=== PATIENT | female | born 1970 | race Caucasian/White ===

== ENCOUNTER → 2017-01-19 | Outpatient (CLI) | payer OTHER ==
--- NOTE | 2017-01-20 07:55 | MAMMOGRAPHY REPORT ---
BILATERAL DIGITAL SCREENING MAMMOGRAM TOMOSYNTHESIS WITH CAD: 01/19/2017 CLINICAL HISTORY: Routine screening. Patient has no complaints. TECHNIQUE: Breast tomosynthesis in addition to standard 2D mammography was performed. Current study was also evaluated with a Computer Aided Detection (CAD) system. COMPARISON: Comparison is made to exams dated: 11/15/2014 mammogram, 01/23/2013 mammogram, 01/13/2012 m ammogram, and 01/11/2012 mammogram - [facility]. BREAST COMPOSITION: There are scattered areas of fibroglandular density in both breasts. FINDINGS: The parenchymal pattern is unchanged. No developing mass, architectural distortion or clu ster of suspicious microcalcifications is seen in either breast. IMPRESSION: ACR BI-RADS CATEGORY 2: BENIGN There is no mammographic evidence of malignancy. A 1 year screening mammogram is recommended. The p atient will receive written notification of the results. Approximately 10% of breast cancers are not detected with mammography. A negative mammographic repor t should not delay biopsy if a clinically suggestive mass is present. Nicci Francis M.D. ay/:01/19/2017 17:15:09 Bottom Bleacher: Ketty PERDOMO)(Ann), [facility] letter sent: Normal 1/2 BI-RADS Code: ACR BI-RADS Category 2: Benign
== END | disposition home or self-care (01) ==
LOC: C.MAMM 16:02
PROVIDERS: ATTEND Family Medicine
DX: Z12.31 Encounter for screening mammogram for malignant neoplasm of breast (principal)

== ENCOUNTER 2022-07-07 19:09 | Inpatient (IN) ==
[2022-07-07 20:23] LABS: Basophils # (auto) 0.05 K/uL (0-0.2); Basophils % (auto) 0.6 %; Eosinophils # (auto) 0.34 K/uL (0-0.50); Eosinophils % (auto) 4.3 %; Hematocrit (blood only) 31.7 % (34.1-44.9); Hemoglobin 10.3 g/dl (12.0-16.0); Immature Granulocytes # (auto) 0.03 K/uL (0.00-0.02); Immature Granulocytes % (auto) 0.4 %; Lymphocytes # (auto) 2.89 K/uL (1.2-3.4); Lymphocytes % (auto) 36.2 %; Mean Corpuscular Hemoglobin 20.8 pg (25.0-34.0); Mean Corpuscular Hgb Conc 32.5 g/dL (32.0-36.0); Mean Corpuscular Volume 63.9 fL (80.0-100.0); Monocytes # (auto) 0.56 K/uL (0.24-0.82); Neutrophils # (auto) 4.11 K/uL (1.4-6.5); Neutrophils % (auto) 51.5 %; RDW Coefficient of Variation 16.6 % (11.5-14.5); RDW Standard Deviation 36.7 fL (36.4-46.3); Red Blood Count 4.96 M/uL (3.93-5.22); White Blood Count 7.98 K/ul (4.8-10.8)
[2022-07-07] MEDS ORDERED: LABETALOL HCL IV 5 MG/ML 20ML IV STA ×2 (20:23→20:24)
[2022-07-07 20:33] LABS: Appearance Urine Clear (Clear); Bilirubin Urine Negative (Negative); Blood Urine Negative (Negative); Color Urine Yellow; Glucose Urine UA Negative (Negative); Ketones Urine Negative (Negative); Leukocyte Esterase Urine Negative (Negative); Nitrite Urine Negative (Negative); Protein Urine Negative (Negative); Specific Gravity Urine 1.004 (1.000-1.030); Urobilinogen Urine Negative (Negative)
[2022-07-07 20:36] LABS: Partial Thromboplastin Ratio 1.1; Partial Thromboplastin Time 31.5 Seconds (21.0-31.0); Prothrombin Time 10.6 Seconds (9.0-12.0)
[2022-07-07 20:54] LABS: Albumin Globulin Ratio 1.5 (0.9-2); Albumin Level 4.4 gm/dl (3.4-5.0); BUN Creatinine Ratio 23.2 (10-20); Bilirubin,Total 0.5 mg/dl (0.2-1.0); Calcium 9.8 mg/dl (8.5-10.1); Creatinine Clr Calc Pharmacy 85.9 ml/min; Est GFR (African American) 95.4 ml/min; Est GFR (Non-African American) 82.3 ml/min; Globulin 2.9 gm/dl (2.5-4.0); Magnesium 1.8 mg/dl (1.7-2.4); Potassium 3.2 mmol/L (3.5-5.1); Total Protein 7.3 gm/dl (6.0-8.3)
[2022-07-07 20:56] LABS: Troponin I High Sensitivity 3.5 pg/ml (0-14)
--- NOTE | 2022-07-07 21:09 | Emergency Department Note ---
Impression & Plan Hypertensive urgency, Dizziness, Arm paresthesia, left ED Provider Note NAME: MELISSA REID AGE: 51 SEX: F : 1970 ARRIVES VIA: Walk-In INFORMANT: Patient ED PROVIDER(S): Shaji Ho DO CHIEF COMPLAINT: not feeling well HPI: Patient is a 51-year-old female who presents to the ER for not feeling well. She notes she has not been feeling good for the past 6 to 7 days. Today she notes she was feeling lightheaded and dizzy. She started to have left arm paresthesias in the upper arm. She checked her blood pressure which was significantly elevated. She did also feel her heart racing. She denies any chest pain or shortness of breath. No belly pain. No dysuria, urgency, or frequency. No other exacerbating or remitting factors. She has never had this before. ROS: See above HPI for pertinent positives & negatives. A total of 10 systems reviewed and were otherwise negative. PAST MEDICAL HISTORY:See Below PAST SURGICAL HISTORY:See Below FAMILY HISTORY:See Below SOCIAL HISTORY:See Below HOME MEDICATIONS:See Below ALLERGIES:See Below VITALS:See Below PHYSICAL EXAMINATION: GENERAL: Sitting up in bed, alert, well appearing, well nourished, no distress, non-toxic EYE EXAM: normal conjunctiva. OROPHARYNX: no exudate, no erythema, lips, buccal mucosa, and tongue normal and mucous membranes are moist NECK: supple, no nuchal rigidity, no adenopathy, non-tender LUNGS: Clear to auscultation. Normal chest wall mechanics HEART: no murmurs, S1 normal and S2 normal ABDOMEN: abdomen soft, non-tender, normo-active bowel sounds, no masses, no rebound or guarding. UPPER EXTREMITIES: upper extremities are grossly normal. LOWER EXTREMITIES: No pitting edema. NEURO EXAM: Normal sensorium, cranial nerves II-XII intact, normal speech, no weakness of arms, no weakness of legs. No drift. Finger to nose intact. Gross sensation intact. Rxdn-[id number]-tlcg intact. Rapid alternating movements of upper extremities intact MEDICAL DECISION MAKING: Patient is a 51-year-old female who presents ER for above-stated complaint. IV was established blood work was obtained. Labs show no significant leukocytosis. Mild anemia 10.3. BMP with mild hypokalemia 3.2. LFTs bilirubin was unremarkable. Troponin was negative. Lipase normal. UA was clean. COVID was negative. Chest x-ray unremarkable. CT angios of the head and neck were negative per stat read. Patient was given an IV dose of labetalol with systolic pressures greater than 200. This did trend down to the 160s. She was updated bedside. Discussed with the hospitalist admitted for further work-up. Triage Nursing notes reviewed. Limited review of prior medical records performed Vital Signs: reviewed and remarkable for tachy Differential diagnosis: Differential Diagnosis includes but is not limited to ischemic Stroke, hemorrhagic stroke, bells palsy, mass, neoplasm, migraine headache, seizure, subarachnoid hemorrhage, TIA, and transient global amnesia. ER treatment provided: See below Diagnostics interpreted by me: ECG: Sinus rhythm rate of 113 Normal axis Poor baseline Nonspecific ST wave changes in the inferior leads PVCs QTC 496 EKG #2 Sinus rhythm rate 93 Normal axis No PVCs QTC 494 Cardiac Monitoring: An order was placed for continuous cardiac monitoring. The monitor shows a rate of 98 with sinus rhythm. Laboratory studies: As stated above and show below. Imaging studies: CT angio of the head and neck were negative Consultation(s): D/w Dr Salamanca as stated above Procedures: none Critical Care: None Past Med/Surg History Social History Smoking Status: Never smoker Feels Safe at Home: Yes Allergies Allergies Allergy/AdvReac Type Severity Reaction Status Date / Time No Known Allergies Allergy Unverified 07/07/22 22:55 Home Meds Home Medications Medication Instructions Recorded Confirmed cholecalciferol (vitamin D3) 50 50 mcg PO DAILY 07/07/22 07/07/22 mcg (2,000 unit) tablet (Vitamin D3) duloxetine 30 mg capsule,delayed 60 mg PO Q OTHER DAY 07/07/22 07/07/22 release duloxetine 30 mg capsule,delayed 80 mg PO Q OTHER DAY 07/07/22 07/07/22 release lamotrigine 150 mg tablet 150 mg PO QAM 07/07/22 07/07/22 multivitamin 1 tab PO DAILY 07/07/22 07/07/22 pantoprazole 40 mg tablet,delayed 40 mg PO QAM 07/07/22 07/07/22 release rizatriptan 10 mg disintegrating 10 mg PO DIRECTED 07/07/22 07/07/22 tablet Results & Data (ED) Vital Signs Vital Signs - 24 hr 07/07/22 19:12 07/07/22 19:46 07/07/22 20:19 Temperature 36.4 C L Temperature Source Temporal Artery Scan Pulse Rate 123 H Pulse Rate [Right Finger] Pulse Rate from SpO2 Sensor Respiratory Rate 20 Respiratory Effort / Characteristics Non-Labored Spontaneous Respiratory Depth Normal Blood Pressure 200/104 H Blood Pressure [Right Arm] 192/102 H Blood Pressure Mean 136 Blood Pressure Mean [Right Arm] 132 Pulse Oximetry 100 100 Oxygen Delivery Method Room Air Room Air Oxygen Flow Rate 0 Sepsis Recent Fever Within 48 Hours No Sepsis New/Unexplained Change in Mental Status No Sepsis Action Taken by Nursing No Action Required 07/07/22 20:20 07/07/22 19:29 07/07/22 19:30 Temperature Temperature Source Pulse Rate 109 H 112 H Pulse Rate [Right Finger] Pulse Rate from SpO2 Sensor 111 H 111 H Respiratory Rate 16 15 Respiratory Effort / Characteristics Respiratory Depth Blood Pressure Blood Pressure [Right Arm] Blood Pressure Mean Blood Pressure Mean [Right Arm] Pulse Oximetry 99 100 100 Oxygen Delivery Method Room Air Oxygen Flow Rate Sepsis Recent Fever Within 48 Hours Sepsis New/Unexplained Change in Mental Status Sepsis Action Taken by Nursing 07/07/22 19:40 07/07/22 19:50 07/07/22 20:00 Temperature Temperature Source Pulse Rate 108 H 115 H 110 H Pulse Rate [Right Finger] Pulse Rate from SpO2 Sensor 109 H 115 H 110 H Respiratory Rate 16 13 17 Respiratory Effort / Characteristics Respiratory Depth Blood Pressure Blood Pressure [Right Arm] Blood Pressure Mean Blood Pressure Mean [Right Arm] Pulse Oximetry 100 100 100 Oxygen Delivery Method Oxygen Flow Rate Sepsis Recent Fever Within 48 Hours Sepsis New/Unexplained Change in Mental Status Sepsis Action Taken by Nursing 07/07/22 20:10 07/07/22 21:09 07/07/22 22:07 Temperature Temperature Source Pulse Rate 112 H Pulse Rate [Right Finger] 93 H 100 H Pulse Rate from SpO2 Sensor 112 H Respiratory Rate 17 16 16 Respiratory Effort / Characteristics Respiratory Depth Blood Pressure Blood Pressure [Right Arm] 168/106 H 157/91 H Blood Pressure Mean Blood Pressure Mean [Right Arm] 126 113 Pulse Oximetry 100 100 96 Oxygen Delivery Method Room Air Room Air Oxygen Flow Rate Sepsis Recent Fever Within 48 Hours Sepsis New/Unexplained Change in Mental Status Sepsis Action Taken by Nursing 07/07/22 22:47 Temperature Temperature Source Pulse Rate Pulse Rate [Right Finger] 80 Pulse Rate from SpO2 Sensor Respiratory Rate 16 Respiratory Effort / Characteristics Respiratory Depth Blood Pressure Blood Pressure [Right Arm] 168/102 H Blood Pressure Mean Blood Pressure Mean [Right Arm] 124 Pulse Oximetry 96 Oxygen Delivery Method Room Air Oxygen Flow Rate Sepsis Recent Fever Within 48 Hours Sepsis New/Unexplained Change in Mental Status Sepsis Action Taken by Nursing Laboratory Data Result diagrams: 07/07/22 19:38 07/07/22 19:38 Lab Results 07/07/22 07/07/22 07/07/22 Range/Units 19:38 19:38 19:38 WBC 7.98 (4.8-10.8) K/ul RBC 4.96 (3.93-5.22) M/uL Hgb 10.3 L (12.0-16.0) g/dl Hct 31.7 L (34.1-44.9) % MCV 63.9 L (80.0-100.0) fL MCH 20.8 L (25.0-34.0) pg MCHC 32.5 (32.0-36.0) g/dL RDW Std Deviation 36.7 (36.4-46.3) fL RDW Coeff of Lily 16.6 H (11.5-14.5) % Plt Count 259 (130-400) K/uL MPV 11.1 (9.4-12.3) fL Immature Gran % (Auto) 0.4 % Neut % (Auto) 51.5 % Lymph % (Auto) 36.2 % [place] % (Auto) 7.0 % Eos % (Auto) 4.3 % Baso % (Auto) 0.6 % Neut # (Auto) 4.11 (1.4-6.5) K/uL Lymph # (Auto) 2.89 (1.2-3.4) K/uL [place] # (Auto) 0.56 (0.24-0.82) K/uL Eos # (Auto) 0.34 (0-0.50) K/uL Baso # (Auto) 0.05 (0-0.2) K/uL Immature Gran # (Auto) 0.03 H (0.00-0.02) K/uL Polychromasia 1+ Basophilic Stippling 1+ Microcytosis Present Tear Drop Cells 1+ PT 10.6 (9.0-12.0) Seconds INR 1.0 (0.9-1.1) APTT 31.5 H (21.0-31.0) Seconds PTT Ratio 1.1 Sodium 136 (136-145) mmol/L Potassium 3.2 L (3.5-5.1) mmol/L Chloride 101 (98-107) mmol/L Carbon Dioxide 25 (21-32) mmol/L Anion Gap 10 (3-11) BUN 19 (6-23) mg/dl Creatinine 0.82 (0.6-1.2) mg/dl Est Cr Clr Drug Dosing 85.9 ml/min Est GFR ( Amer) 95.4 ml/min Est GFR (Non-Af Amer) 82.3 ml/min BUN/Creatinine Ratio 23.2 H (10-20) Glucose 91 (70-99(Fasting)) mg/dl Calcium 9.8 (8.5-10.1) mg/dl Magnesium 1.8 (1.7-2.4) mg/dl Total Bilirubin 0.5 (0.2-1.0) mg/dl AST 20 (13-39) U/L ALT 21 (7-52) U/L Alkaline Phosphatase 72 (34-104) U/L Troponin I High Sens 3.5 (0-14) pg/ml Total Protein 7.3 (6.0-8.3) gm/dl Albumin 4.4 (3.4-5.0) gm/dl Globulin 2.9 (2.5-4.0) gm/dl Albumin/Globulin Ratio 1.5 (0.9-2) Lipase 32 (11-82) U/L Urine Color Urine Appearance (Clear) Urine pH (4.5-7.5) Ur Specific [place] (1.000-1.030) Urine Protein (Negative) Urine Glucose (UA) (Negative) Urine Ketones (Negative) Urine Blood (Negative) Urine Nitrite (Negative) Urine Bilirubin (Negative) Urine Urobilinogen (Negative) Ur Leukocyte Esterase (Negative) SARS-CoV-2, RNA, NAAT (NEGATIVE) 07/07/22 07/07/22 Range/Units 20:20 23:14 WBC (4.8-10.8) K/ul RBC (3.93-5.22) M/uL Hgb (12.0-16.0) g/dl Hct (34.1-44.9) % MCV (80.0-100.0) fL MCH (25.0-34.0) pg MCHC (32.0-36.0) g/dL RDW Std Deviation (36.4-46.3) fL RDW Coeff of Lily (11.5-14.5) % Plt Count (130-400) K/uL MPV (9.4-12.3) fL Immature Gran % (Auto) % Neut % (Auto) % Lymph % (Auto) % [place] % (Auto) % Eos % (Auto) % Baso % (Auto) % Neut # (Auto) (1.4-6.5) K/uL Lymph # (Auto) (1.2-3.4) K/uL [place] # (Auto) (0.24-0.82) K/uL Eos # (Auto) (0-0.50) K/uL Baso # (Auto) (0-0.2) K/uL Immature Gran # (Auto) (0.00-0.02) K/uL Polychromasia Basophilic Stippling Microcytosis Tear Drop Cells PT (9.0-12.0) Seconds INR (0.9-1.1) APTT (21.0-31.0) Seconds PTT Ratio Sodium (136-145) mmol/L Potassium (3.5-5.1) mmol/L Chloride (98-107) mmol/L Carbon Dioxide (21-32) mmol/L Anion Gap (3-11) BUN (6-23) mg/dl Creatinine (0.6-1.2) mg/dl Est Cr Clr Drug Dosing ml/min Est GFR ( Amer) ml/min Est GFR (Non-Af Amer) ml/min BUN/Creatinine Ratio (10-20) Glucose (70-99(Fasting)) mg/dl Calcium (8.5-10.1) mg/dl Magnesium (1.7-2.4) mg/dl Total Bilirubin (0.2-1.0) mg/dl AST (13-39) U/L ALT (7-52) U/L Alkaline Phosphatase (34-104) U/L Troponin I High Sens (0-14) pg/ml Total Protein (6.0-8.3) gm/dl Albumin (3.4-5.0) gm/dl Globulin (2.5-4.0) gm/dl Albumin/Globulin Ratio (0.9-2) Lipase (11-82) U/L Urine Color Yellow Urine Appearance Clear (Clear) Urine pH 6.0 (4.5-7.5) Ur Specific [place] 1.004 (1.000-1.030) Urine Protein Negative (Negative) Urine Glucose (UA) Negative (Negative) Urine Ketones Negative (Negative) Urine Blood Negative (Negative) Urine Nitrite Negative (Negative) Urine Bilirubin Negative (Negative) Urine Urobilinogen Negative (Negative) Ur Leukocyte Esterase Negative (Negative) SARS-CoV-2, RNA, NAAT NEGATIVE (NEGATIVE) Administered Medications Magnesium Sulfate/Dextrose (Magnesium Sulfate / D5w) 1 gm in 100 mls @ 50 mls/hr IV Q2H LYDIA Stop: 07/08/22 03:14 Last Admin: 07/07/22 23:57 Dose: 50 mls/hr Documented By: CHARLES Discontinued Medications Labetalol HCl (Labetalol Hcl Iv 5 Mg/Ml 20ml) 10 mg IV NOW STA Stop: 07/07/22 20:24 Last Admin: 07/07/22 20:30 Dose: 10 mg Documented By: AM Co-signed By: NANCY Labetalol HCl (Labetalol Hcl Iv 5 Mg/Ml 20ml) 10 mg IV NOW STA Stop: 07/07/22 20:25 Last Admin: 07/07/22 22:54 Dose: Not Given Documented By: ASW Lisinopril (Lisinopril 5 Mg Tab) 5 mg PO NOW STA Stop: 07/07/22 23:01 Last Admin: 07/07/22 23:08 Dose: 5 mg Documented By: CHARLES Lorazepam (Lorazepam 0.5 Mg Tab) 0.5 mg PO NOW STA Stop: 07/07/22 22:37 Last Admin: 07/07/22 23:08 Dose: 0.5 mg Documented By: CHARLES Potassium Chloride (Potassium Chloride Crtab 20 Meq Tabcr) 40 meq PO NOW STA Stop: 07/07/22 22:43 Last Admin: 07/07/22 23:08 Dose: 40 meq Documented By: CHARLES Discharge Plan Visit Data Chief Complaint: Chest Pain Stated Complaint: CHEST PAINS ED Provider: Shaji Ho Discharge Problem: Hypertensive urgency, Dizziness, Arm paresthesia, left Forms Stand Alone Forms: [facility] Prescriptions Prescriptions: No Action multivitamin Tablet 1 tab PO DAILY lamotrigine 150 mg tablet 150 mg PO QAM rizatriptan 10 mg tablet,disintegrating 10 mg PO DIRECTED Rx Instructions: Take 1 tab PRN, may repeat in 2 hr PRN pantoprazole 40 mg tablet,delayed release (DR/EC) 40 mg PO QAM duloxetine 30 mg capsule,delayed release(DR/EC) 60 mg PO Q OTHER DAY Rx Instructions: Alternate with 80 mg qod duloxetine 30 mg capsule,delayed release(DR/EC) 80 mg PO Q OTHER DAY Rx Instructions: ALTERNATE WITH 60 MG QOD cholecalciferol (vitamin D3) [Vitamin D3] 50 mcg (2,000 unit) Tablet 50 mcg PO DAILY Referrals Referrals: Destiny Whitten MD [Primary Care Provider] -
[2022-07-07 21:44] LABS: Mean Platelet Volume 11.1 fL (9.4-12.3); Platelet Count 259 K/uL (130-400)
[2022-07-07 21:45] LABS: Basophilic Stippling 1+; Microcytosis Present; Polychromasia 1+; Tear Drop Cells 1+
[2022-07-07] MEDS ORDERED: LORazepam 0.5 MG TAB PO STA (22:36)
[2022-07-07] MEDS ORDERED: POTASSIUM CHLORIDE CRTAB 20 MEQ TABCR PO STA (22:42)
[2022-07-07] MEDS ORDERED: lisinopril 5 MG TAB PO STA (23:00)
[2022-07-07] MEDS: MAGNESIUM SULFATE / D5W 1 GM/100 ML BAG IV SCH (23:57)
--- NOTE | 2022-07-08 00:23 | History and Physical Report ---
DATE OF ADMISSION: 07/07/2022. CHIEF COMPLAINT: Hypertensive urgency and chest pain. HISTORY OF PRESENT ILLNESS: This is a 51-year-old female with past medical history significant for hyperlipidemia, venous insufficiency of legs, GERD, history of headaches, history of thalassemia, history of bipolar affective disorder, generalized anxiety disorder, history of dysplastic nevus, presents with chest pain and numbness and tingliness in the left upper extremity. The patient is having some mild chest discomfort going on for last 2 to 3 days. She has lot of stress at home and at work. Daughter is getting next month and today morning, she had headache and she took Maxalt, but later in the evening, she continued to have tingling and numbness in the shoulder and arm. Her daughter checked her blood pressure,systolic blood pressure in 190s. No history of hypertension. In the ER when the patient came in, blood pressure was 200/104, got 2 doses of labetalol, currently, 157/91. Feeling better. She is still having slight mild chest discomfort. Currently, no headache, no neck pain, no back pain, no abdominal pain, no leg pains. No shortness of breath, no cough, no fevers. She has vision issues from her cataracts. No earache, no runny nose, no sore throat. Appetite is okay. No nausea. Normal bowel and bladder movements. No swelling in the legs. Otherwise,prior to this episode no chest pain, shortness of breath on climbing steps or ambulating. ALLERGIES: No known drug allergies. PAST MEDICAL HISTORY: As mentioned above. PAST SURGICAL HISTORY: , dilatation and curettage, EGD with biopsy, history of ligation of oviducts, total hysterectomy. MEDICATIONS: As per [facility], the patient is on Protonix 40 mg p.o. daily, rizatriptan 10 mg as needed, ., duloxetine 60 mg and 80mg p.o. on alternate days, vitamin D 2000 International Units p.o. daily, Lamictal 150 mg p.o. daily. FAMILY HISTORY: Significant for father has COPD, beta thalassemia minor. Mother has depression, renal history. Sister has COPD. Paternal grandmother had breast cancer at age of 80. SOCIAL HISTORY: , no smoking. Alcohol occasional. No drug use. REVIEW OF SYSTEMS: As per HPI. Rest of the review of systems is negative. PHYSICAL EXAMINATION: GENERAL: The patient is of moderate build, not in acute distress. VITAL SIGNS: Temperature 36.4, pulse 100, respiratory rate 16, blood pressure 157/91 currently, oxygen 96% on room air. HEENT: Pupils equal, round and reactive to light. Oral mucosa moist. NECK: No JVD: No neck masses seen. CARDIOVASCULAR: S1 and S2 heard. Regular rate and rhythm. No murmur, no gallop. RESPIRATORY SYSTEM: Normal AP diameter. No accessory muscle use. No wheezing, no crackles. ABDOMEN: Soft, bowel sounds present, nontender, no distention. CENTRAL NERVOUS SYSTEM: The patient is alert and oriented. No facial droop. Speech is clear. Insight is good. Power 5/5 in all extremities. Sensation is intact. EXTREMITIES: No edema, no erythema. LABORATORY DATA: WBC 7.9, hemoglobin 10.3, hematocrit 31.7, platelets 259. PT 10.6, INR 1, APTT 31.5. Sodium 136, potassium 3.2, chloride 101, bicarbonate 25, BUN 19, creatinine 0.8, serum glucose 191, calcium 9.8, magnesium 1.8, total bilirubin 0.5, AST 20, ALT 21, alkaline phosphatase 72. Troponin I high sensitivity 3.5. Lipase 32. Urinalysis negative. IMAGING DATA: CTA of the head and neck, preliminary reports are unremarkable. Chest x-ray, no acute findings. EKG: Initial EKG: Sinus tachycardia with occasional PVCs and fusion complexes, rate of 113. Bilateral enlargement. Repeat EKG: Normal sinus rhythm, rate of 93, possible left atrial enlargement, no acute ST changes seen. ASSESSMENT AND PLAN: This is a 51-year-old female who presents with hypertensive urgency and chest pain. 1. Chest pain and tingliness in the left shoulder and left extremity, possibly secondary to hypertensive urgency: The patient was having severe headache. CTA of the head and neck are unremarkable. Currently, feeling better. Her blood pressure is better controlled with labetalol. No history of hypertension. Lot of stress at home and work. Troponin is negative. Initial EKG showed PVCs and fusion complexes. We will follow serial cardiac enzymes, echocardiogram. We will keep n.p.o. Consult cardiology in the a.m. for further recommendation. Monitor closely in the tele floor. 2. Hypertensive urgency: Possible cause of her current symptoms. No history of hypertension: Blood pressure was 200/104 on presentation. Received 2 doses of IV labetalol. . We will continue with IV labetalol p.r.n. Will give one dose of lisinopril 5mg. Follow echo. Monitor in the tele. Consult cardiology for further recommendations. 3. Hypokalemia: We will replace. 4. History of hyperlipidemia: Not on any medication. Follow lipid profile. 5. History of gastroesophageal reflux disease: Continue Protonix. 6. History of generalized anxiety disorder, bipolar depression: Continue duloxetine, Lamictal. 7. Deep venous thrombosis prophylaxis: Sequential compression devices for now. DISPOSITION: Closely monitor in the tele floor. Level 1 full code. Expect to discharge home and follow with family doctor. Job ID: [id number] [facility]
[2022-07-08] MEDS ORDERED: LABETALOL HCL IV 5 MG/ML 20ML IV PRN (00:56)
[2022-07-08] MEDS ORDERED: SODIUM CHLORIDE 0.9% 1000ML 1,000 ML IV SCH (00:56)
[2022-07-08] MEDS ORDERED: NITROGLYCERIN SL 0.4 MG/TAB TAB SL PRN (00:56)
[2022-07-08] MEDS ORDERED: ACETAMINOPHEN 325 MG TAB PO PRN (00:56)
[2022-07-08] MEDS ORDERED: RIZATRIPTAN BENZOATE MLT 10 MG TAB PO PRN (01:04)
[2022-07-08] MEDS: MAGNESIUM SULFATE / D5W 1 GM/100 ML BAG IV SCH (01:54)
[2022-07-08] MEDS: POTASSIUM CHLORIDE / WTR 10 MEQ/100 ML PLCT IV SCH ×2 (04:16→06:03)
[2022-07-08 05:52] LABS: Basophils # (auto) 0.03 K/uL (0-0.2); Basophils % (auto) 0.4 %; Eosinophils # (auto) 0.11 K/uL (0-0.50); Eosinophils % (auto) 1.5 %; Hematocrit (blood only) 29.1 % (34.1-44.9); Hemoglobin 9.4 g/dl (12.0-16.0); Immature Granulocytes # (auto) 0.02 K/uL (0.00-0.02); Immature Granulocytes % (auto) 0.3 %; Lymphocytes # (auto) 1.83 K/uL (1.2-3.4); Lymphocytes % (auto) 25.5 %; Mean Corpuscular Hemoglobin 20.6 pg (25.0-34.0); Mean Corpuscular Hgb Conc 32.3 g/dL (32.0-36.0); Mean Corpuscular Volume 63.7 fL (80.0-100.0); Monocytes # (auto) 0.45 K/uL (0.24-0.82); Monocytes % (auto) 6.3 %; Neutrophils # (auto) 4.74 K/uL (1.4-6.5); RDW Coefficient of Variation 16.5 % (11.5-14.5); RDW Standard Deviation 36.2 fL (36.4-46.3); Red Blood Count 4.57 M/uL (3.93-5.22); White Blood Count 7.18 K/ul (4.8-10.8)
[2022-07-08 06:18] LABS: Troponin I High Sensitivity 2.6 pg/ml (0-14)
[2022-07-08 06:19] LABS: BUN Creatinine Ratio 16.9 (10-20); Calcium 8.5 mg/dl (8.5-10.1); Chol HDL Ratio 4.2 (0-5); Creatinine Clr Calc Pharmacy 98.6 ml/min; Est GFR (African American) 113.5 ml/min; Est GFR (Non-African American) 97.9 ml/min; Magnesium 2.4 mg/dl (1.7-2.4)
[2022-07-08 06:29] LABS: Mean Platelet Volume 10.6 fL (9.4-12.3); Microcytosis Present; Platelet Count 245 K/uL (130-400); Polychromasia 1+; Schistocytes 1+; Tear Drop Cells 1+
--- NOTE | 2022-07-08 07:50 | CT Scan Report ---
HEAD CTA HISTORY: Left arm numbness. TECHNIQUE: Multiaxial CT images of the head were performed both before and after the intravenous admi nistration of contrast to evaluate the major cerebral vessels. Maximum intensity projection images we re also obtained. A dose lowering technique was utilized adhering to the principles of ALARA. COMPARISON: None. FINDINGS: Mild motion artifact. The paranasal sinuses and mastoid air cells are clear. The calvarium and skull base are intact. The major dural venous sinuses are patent. Slightly hypoplastic distal rig ht vertebral artery. There is no mass, hematoma, midline shift, or acute infarct. Visualized intracra nial internal carotid arteries, distal vertebral arteries, and basilar artery are widely patent. Ther e is no significant stenosis, occlusion, or aneurysm seen within the bilateral ACAs, MCAs, or elevator adjuster. IMPRESSION: 1. No acute intracranial abnormality. 2. No significant stenosis, occlusion, or aneurysm within the [place]. ACT 112: Negative or not required by law. Electronically signed by: Lj Hall M.D. 07/08/2022 7:49 AM
--- NOTE | 2022-07-08 08:06 | Electrocardiogram Report ---
Test Reason : Blood Pressure : / mmHG Vent. Rate : 113 BPM Atrial Rate : 113 BPM P-R Int : 146 ms QRS Dur : 092 ms QT Int : 362 ms P-R-T Axes : 062 052 038 degrees QTc Int : 496 ms Sinus tachycardia with occasional , and consecutive Premature ventricular complexes and Fusion comple xes Biatrial enlargement Abnormal ECG No previous ECGs available Confirmed by Iglesia Mercado ([id number]) on 07/08/2022 8:05:40 AM Referred By: REFERRED SELF Confirmed By:Iglesia Mercado
--- NOTE | 2022-07-08 08:06 | Electrocardiogram Report ---
Test Reason : Blood Pressure : / mmHG Vent. Rate : 093 BPM Atrial Rate : 093 BPM P-R Int : 142 ms QRS Dur : 084 ms QT Int : 398 ms P-R-T Axes : 056 047 035 degrees QTc Int : 494 ms Normal sinus rhythm Left atrial enlargement Prolonged QT Abnormal ECG When compared with ECG of 07-JUL-2022 19:24, Fusion complexes are no longer Present Premature ventricular complexes are no longer Present Confirmed by Iglesia Mercado ([id number]) on 07/08/2022 8:06:23 AM Referred By: REFERRED SELF Confirmed By:Iglesia Mercado
--- NOTE | 2022-07-08 08:06 | Electrocardiogram Report ---
Test Reason : Blood Pressure : / mmHG Vent. Rate : 083 BPM Atrial Rate : 083 BPM P-R Int : 144 ms QRS Dur : 082 ms QT Int : 416 ms P-R-T Axes : 056 048 034 degrees QTc Int : 488 ms Normal sinus rhythm Prolonged QT Abnormal ECG When compared with ECG of 07-JUL-2022 21:11, No significant change was found Confirmed by Iglesia Mercado ([id number]) on 07/08/2022 8:06:34 AM Referred By: REFERRED SELF Confirmed By:Iglesia Mercado
[2022-07-08] MEDS ORDERED: lamoTRIgine 100 MG TAB PO SCH (09:00)
[2022-07-08] MEDS ORDERED: MULTIVITAMIN TAB PO SCH (09:00)
[2022-07-08] MEDS ORDERED: DULoxetine HCL 20 MG CAP PO SCH (09:00)
[2022-07-08] MEDS ORDERED: PANTOprazole 40 MG TAB PO SCH (09:00)
[2022-07-08] MEDS ORDERED: CHOLECALCIFEROL 1,000 UNITS 25 MCG TAB PO SCH (09:00)
[2022-07-08] MEDS ORDERED: LOSARTAN POTASSIUM 50 MG TAB PO SCH (09:00)
--- NOTE | 2022-07-08 09:04 | CT Scan Report ---
CT ANGIOGRAM OF THE NECK CLINICAL HISTORY: Left upper extremity numbness COMPARISON STUDY: No priors. TECHNIQUE: Following the IV administration of 110 of Optiray 300, CT angiogram of the neck was perfor med from the aortic arch to the skull base. Images are reviewed in the axial, sagittal, and coronal p lanes. 3-D MIPS images are created and assessed. IV contrast was administered without complication. A ll measurements were calculated based on NASCET criteria. A dose lowering technique was utilized adh ering to the principles of ALARA. FINDINGS: Thoracic aorta: Visualized portions of the thoracic aorta are normal in caliber. The aortic arch demo nstrates standard 3-vessel anatomy. Right carotid arterial system: The right common carotid artery is widely patent, as are the right int ernal and external carotid arteries. Left carotid arterial system: The left common carotid artery is widely patent, as are the left internship al and external carotid arteries. Vertebral arteries: The vertebral arteries are widely patent bilaterally noting left-sided dominance. No dissection is seen. Subclavian arteries: Widely patent bilaterally. Intracranial vasculature: The visualized intracranial vessels at the skull base are patent. Jugular veins: Widely patent bilaterally. Brain parenchyma: The visualized brain parenchyma the skull base is within normal limits. Lung apices: Partially visualized upper lobe lung parenchyma appears clear. Soft tissues: The visualized pharyngeal soft tissues are normal in appearance noting angiographic pha se technique. The oropharyngeal airway appears widely patent. The salivary and thyroid glands are nor mal in appearance. There are shotty cervical lymph nodes. Skeletal structures: The visualized calvarium at the skull base appears intact. The imaged cervical s pine is within normal limits. Sinuses and mastoids: The visualized paranasal sinuses are clear. The mastoid air cells are well pneu matized. IMPRESSION: Unremarkable CT angiogram of the neck. ACT 112: Negative or not required by law. Electronically signed by: Reno Ayon M.D. 07/08/2022 9:03 AM
--- NOTE | 2022-07-08 09:05 | XRay Report ---
SINGLE VIEW CHEST CLINICAL HISTORY: Hypertension. Atypical chest pain. FINDINGS: An AP, portable, upright chest radiograph is obtained. No prior studies are available for c omparison at the time of dictation. The cardiomediastinal silhouette is unremarkable. The lungs and p leural spaces are clear. No pneumothorax is seen. The bony thorax is grossly intact. IMPRESSION: No active disease in the chest. ACT 112: Negative or not required by law. Electronically signed by: Rneo Ayon M.D. 07/08/2022 9:03 AM
--- NOTE | 2022-07-08 09:49 | Cardiology Consultation ---
Date of Consultation July 08, 2022 Assessment & Plan (1) Hypertensive urgency: (2) Chest pain at rest: (3) Palpitation: (4) PVCs (premature ventricular contractions): (5) Hypokalemia: Plan Hypertensive urgency. Blood pressure has improved following addition of labetalol, lisinopril, and anxiolytic. Recommend adding carvedilol 3.125 mg twice per day for blood pressure as well as heart rate control noting tachypalpitations and symptomatic ectopy observed on telemetry in the ER. Agree with low dose losartan with not made of hypokalemia on presentation. Spironolactone may be a consideration if ongoing hypokalemia and hypertension observed. Chest pain at rest. Atypical. EKG without acute changes. Troponin negative x2. Resting echocardiogram pending. + Multiple cardiac risk factors. Proceed with exercise stress echocardiography once blood pressures controlled. Palpitations. Lightheadedness and dizziness correlated with sensed ectopy in the ER. Add carvedilol as above. Prolonged QTC. Maintain electrolytes. Avoid QTc prolonging agents if possible. Supervising Physician Co-Signing Physician Notes Patient seen and examined at bedside. Blood pressure improved since admission. Reports stress, anxiety, chest discomfort, and palpitations prior to admission. Currently pain-free and feeling better. PE: VSS. Gen: NAD, AAOx3. Heart: Regular rhythm, normal S1-S2. No murmur. Lungs: Clear bilateral, no rales, rhonchi, wheeze. Extremities: No edema A/P: Agree with above PA-C history, physical exam, assessment and plan. Exercise stress echo performed. No evidence of inducible ischemia at high workload. Blood pressure response to exercise within normal limits. Patient may be discharged home with low-dose carvedilol. History of Present Illness Reason for Consultation: Hypertensive urgency, chest pain Requesting Physician: Main Attending Physician: Samson History of Present Illness Mrs. Penny Tavares is a very pleasant 51 year old female who has not been feeling well the last couple days. The last couple of days patient has been experiencing a sensation of "everything speeding up," tachypalpitations, funny feeling in the chest, bubble like sensation really anxious, occasional lightheaded and dizziness that correlated with ectopy observed on telemetry in the ER, warm tingling feeling in the left upper extremity. Notes taking a Ma xalt for headache which is done in the past at much higher doses without difficulty. Patient notes significant stressors of late. Daughter is a PA, checking patient's blood pressure last evening with systolic reading greater than 200. Patient referred to the ER with blood pressure of 200/104 on presentation. She initially received 10 mg of IV labetalol followed by lorazepam and then lisinopril (5 mg) with gradual improvement in blood pressure. Blood pressure this morning is 136/79. Laboratory work revealed hypokalemia with a potassium of 3.2. Magnesium was normal at 1.8. EKGs are as noted below. High-sensitivity troponin negative x2 at 3.5 and 2.6 PG/mL. Resting echocardiography is pending interpretation. Past Medical and Surgical History: Beta thalassemia minor. Gastric polyp. Bipolar. Generalized anxiety disorder. Headaches. GERD. Varicose veins. D&C in 1990. . Tubal ligation in 1999. Total hysterectomy in 2000. Family History: Father with CAD and COPD. Mother is alive with hypertension. Sister with morbidly obese, passing with congestive heart failure in her 30s. Social History: Non-smoker. Social alcohol. No illegal drug use. OTC medications: Advil as needed, vitamin D3. 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 Allergies Allergy/AdvReac Type Severity Reaction Status Date / Time No Known Allergies Allergy Unverified 07/07/22 22:55 Home Medications Medication Instructions Recorded Confirmed Type cholecalciferol (vitamin D3) 50 50 mcg PO DAILY 07/07/22 07/07/22 History mcg (2,000 unit) tablet (Vitamin D3) duloxetine 30 mg capsule,delayed 60 mg PO Q OTHER DAY 07/07/22 07/07/22 History release duloxetine 30 mg capsule,delayed 80 mg PO Q OTHER DAY 07/07/22 07/07/22 History release lamotrigine 150 mg tablet 150 mg PO QAM 07/07/22 07/07/22 History multivitamin 1 tab PO DAILY 07/07/22 07/07/22 History pantoprazole 40 mg tablet,delayed 40 mg PO QAM 07/07/22 07/07/22 History release rizatriptan 10 mg disintegrating 10 mg PO DIRECTED 07/07/22 07/07/22 History tablet Patient History Social History Smoking Status: Never smoker Do You Dip or Chew Tobacco: No; Tobacco Cessation Education Requested by Patient: No Hx Alcohol Use: Yes Hx Substance Use: No Preferred Language: Spanish Communication Ability: Effective [place] Required: No Beliefs That Will Affect Care: None marital status: Current Living Situation: Spouse Other Information That Helps Us Care for You: No Feels Safe at Home: Yes Safety Concerns: Feels Safe At This Time Assistive Devices: None Review of Systems Review of Systems: Complete Review of Systems: Constitutional: No change in weight. No fevers, sweats, or chills. HEENT: + Headaches. + Right cataract with extraction scheduled on Tuesday. No floaters. No macular degeneration. No glaucoma. No amaurosis fugax. Pulmonary: No history of sleep apnea, pulmonary embolism, COPD or asthma. Cardiac: Dyslipidemia. Patient denies prior cardiac history. She specifically denies history of heart murmur, arrhythmia, rheumatic fever, scarlet fever, CAD, HI, or CHF. GI/Abd: GERD. No dysphagia. No melana or hematochezia. Denies liver problems. Denies kidney problems. Vascular: Denies history of claudication, AAA, or carotid artery disease. Hematologic: Beta thalassemia minor Musculoskeletal: Negative. Skin: No rash. Neurologic: No history of TIA or CVA. No history of seizure. Psych: Bipolar affective disorder. Generalized anxiety disorder. Female : Status post hysterectomy in 2010. Endocrine: Denies DM. Denies thyroid problems. Complete Review of Systems is as stated above, negative, or noncontributory. Physical Exam Physical Exam: General: A&Ox3. NAD. HENT: Normocephalic. Eyes: Atraumatic. PER. Conjunctiva pink, sclera clear. Neck: No carotid bruits. No JVD. No HJR. Heart: RRR. No murmur. No rub. No gallop. PMI is nondisplaced. Lungs: Clear to auscultation. Abdomen: +BS. Extremities: No clubbing, cyanosis, or edema. Limited neurological examination is without focal deficits. Pulses: radial=2/4, posterior tibial=2/4. Results & Data ([facility]) Vital Signs (Past 12 Hours) Vital Signs Temp Pulse Pulse Resp BP BP Pulse Ox 07/08/22 08:11 37.1 C 89 18 136/79 97 07/08/22 02:40 37.0 C 88 18 160/68 H 98 07/08/22 01:30 87 07/08/22 00:41 07/08/22 00:41 37.1 C 92 H 18 165/72 H 98 07/08/22 00:00 88 18 153/88 H 97 07/07/22 23:33 88 12 160/91 H 99 07/07/22 23:00 93 H 15 141/85 H 95 07/07/22 22:47 80 16 168/102 H 96 07/07/22 22:07 100 H 16 157/91 H 96 O2 Del Method 07/08/22 08:11 Room Air 07/08/22 02:40 Room Air 07/08/22 01:30 07/08/22 00:41 Room Air 07/08/22 00:41 Room Air 07/08/22 00:00 Room Air 07/07/22 23:33 Room Air 07/07/22 23:00 Room Air 07/07/22 22:47 Room Air 07/07/22 22:07 Room Air Laboratory Results Cardiac Enzymes 07/07/22 07/08/22 Range/Units 19:38 05:40 AST 20 (13-39) U/L Troponin I High Sens 3.5 2.6 (0-14) pg/ml Coagulation 07/07/22 Range/Units 19:38 PT 10.6 (9.0-12.0) Seconds APTT 31.5 H (21.0-31.0) Seconds Lipids 07/08/22 Range/Units 05:40 Triglycerides 95 (0-150) mg/dl Cholesterol 175 (0-200) mg/dl HDL Cholesterol 42 mg/dl Cholesterol/HDL Ratio 4.2 (0-5) CBC 07/07/22 07/08/22 Range/Units 19:38 05:40 WBC 7.98 7.18 (4.8-10.8) K/ul RBC 4.96 4.57 (3.93-5.22) M/uL Hgb 10.3 L 9.4 L (12.0-16.0) g/dl Hct 31.7 L 29.1 L (34.1-44.9) % Plt Count 259 245 (130-400) K/uL Neut # (Auto) 4.11 4.74 (1.4-6.5) K/uL Lymph # (Auto) 2.89 1.83 (1.2-3.4) K/uL [place] # (Auto) 0.56 0.45 (0.24-0.82) K/uL Eos # (Auto) 0.34 0.11 (0-0.50) K/uL Baso # (Auto) 0.05 0.03 (0-0.2) K/uL Comprehensive Metabolic Panel 07/07/22 07/08/22 Range/Units 19:38 05:40 Sodium 136 138 (136-145) mmol/L Potassium 3.2 L 4.0 D (3.5-5.1) mmol/L Chloride 101 106 (98-107) mmol/L Carbon Dioxide 25 25 (21-32) mmol/L BUN 19 12 (6-23) mg/dl Creatinine 0.82 0.71 (0.6-1.2) mg/dl Glucose 91 86 (70-99(Fasting)) mg/dl Calcium 9.8 8.5 (8.5-10.1) mg/dl AST 20 (13-39) U/L ALT 21 (7-52) U/L Alkaline Phosphatase 72 (34-104) U/L Total Protein 7.3 (6.0-8.3) gm/dl Albumin 4.4 (3.4-5.0) gm/dl Intake and Output 07/07/22 07/08/22 07/08/22 22:59 06:59 14:59 Intake Total 300 / 300 100 / 100 Balance 300 / 300 100 / 100 Intake: IV 300 / 300 100 / 100 Magnesium Sulfate / D5w 1 gm In 200 / 200 100 ml @ 50 mls/hr IV Q2H LYDIA Rx#:[id number] Potassium Chloride / Wtr 10 meq 100 / 100 100 / 100 In 100 ml @ 100 mls/hr IV Q1H LYDIA Rx#:[id number] Sodium Chloride 0.9% 1000ML 1, 0 / 0 000 ml @ 80 mls/hr IV .[id number] LYDIA Rx#:[id number] Other: Other Intake Source NPO # Unmeasured Voids 1 Weight 84.1 kg 83 kg Weight Measurement Method Built in [facility] Diagnostic Findings EKG on presentation revealed sinus tachycardia at 113 bpm with occasional and consecutive premature ventricular complexes and fusion complexes. Biatrial enlargement. QTc 496 ms. EKG on 07-JUL-2022 21:11:45 revealed normal sinus rhythm at 93 bpm with left atrial enlargement, QTC of 494 ms. EKG on 07-JUL-2022 21:11:45 revealed normal sinus rhythm at 83 bpm with a QTC of 488 ms. Resting echocardiography was completed this morning, pending interpretation. Continuous telemetry monitoring reveals sinus rhythm in the 70s and 80s. Chest x-ray showed no active disease in the chest. Neck CTA was unremarkable
--- NOTE | 2022-07-08 11:14 | Hospitalist Progress Note ---
Date of Service July 08, 2022 Assessment & Plan (1) Hypertensive urgency: Plan: Presented wtih 200/104. Typically has BP 120-130s systolic per office notes review. Not on antihypertensive therapy. No evidence of hyperlipidemia. A1C recommended if she stays or as outpatient. She has an upcoming cataract removal next week. Lisinopril 5mg given last night along with one dose of labetalol 10mg IV. Losartan 50mg daily started today and cardiology recommends Coreg 3.125mg BID because of recent palpitations. Consider event monitor as outpatient with pre-admission palpitations and PVCs noted on telemetry overnight. Pending stress test today and definitive cardiology recommendations. (2) Palpitation: Plan: Plan as above. (3) Hypokalemia: Plan: Repleted (4) Mood disorder: Plan: chronic, stable. Cont home medications. (5) DVT prophylaxis: Plan: SCDs/ambulation Full Code Dispo- to home pending cardiology clearance. is a PA here at [facility] and was at bedside when we discussed the plan today. Traci Davies [facility] and [facility]tic[facility]ated Discharge Date Admission Date: July 07, 2022 Subjective 51 yo F presented with palpitations and hypertensive urgency. Reports no chest pain or SOB today Denies other concerning symptoms. BP has come back to 136/79 this morning K 3.2 yesterday, improved to 4.0 She reports stress from life events recently Job is a factor. Trop trend negative overnight and echo currently pending Plan for stress test today. Review of Systems Review of Systems: All systems were reviewed and negative except as indicated above. Physical Exam Physical Exam: CONSTITUTIONAL: WNWD, vitals as above, generally well- appearing, NAD EYES: normal conjunctivae, no scleral icterus, ENT: external ear and nose normal, MMM NECK: trachea midline, RESPIRATORY: clear to auscultation bilaterally, no crackles, rales or wheezes, normal respiratory effort CARDIOVASCULAR: regular rate and rhythm, S1 and 2 heard without murmurs, gallops or rubs, no JVD, no peripheral edema, no abdominal bruits, 2+ radial pulse that is regular bilaterally. CHEST: inspection of chest was normal GASTROINTESTINAL: soft, nontender, ND, no guarding MUSCULOSKELETAL: strength 5/5 throughout, head is normocephalic and atraumatic SKIN: warm and dry NEUROLOGIC: CN 2-12 grossly intact, no sensory deficit, normal cognition, normal speech, no tremor PSYCHIATRIC: alert cooperative and oriented to person, place and time. Euthym ic mood, makes good eye contact, language grossly intact, recent and remote memory grossly intact. Results & Data Results & Data ([facility]) Vital Signs (Past 12 Hours) Vital Signs Temp Pulse Pulse Resp BP BP Pulse Ox 07/08/22 08:11 37.1 C 89 18 136/79 97 07/08/22 02:40 37.0 C 88 18 160/68 H 98 07/08/22 01:30 87 07/08/22 00:41 07/08/22 00:41 37.1 C 92 H 18 165/72 H 98 07/08/22 00:00 88 18 153/88 H 97 07/07/22 23:33 88 12 160/91 H 99 O2 Del Method 07/08/22 08:11 Room Air 07/08/22 02:40 Room Air 07/08/22 01:30 07/08/22 00:41 Room Air 07/08/22 00:41 Room Air 07/08/22 00:00 Room Air 07/07/22 23:33 Room Air Laboratory Results Short CBC 07/07/22 07/08/22 Range/Units 19:38 05:40 WBC 7.98 7.18 (4.8-10.8) K/ul Hgb 10.3 L 9.4 L (12.0-16.0) g/dl Hct 31.7 L 29.1 L (34.1-44.9) % Plt Count 259 245 (130-400) K/uL [facility] 07/07/22 07/08/22 19:38 05:40 Sodium 136 138 Potassium 3.2 L 4.0 D Chloride 101 106 Carbon Dioxide 25 25 BUN 19 12 Creatinine 0.82 0.71 Glucose 91 86 Calcium 9.8 8.5 Liver Function 07/07/22 Range/Units 19:38 Total Bilirubin 0.5 (0.2-1.0) mg/dl AST 20 (13-39) U/L ALT 21 (7-52) U/L Alkaline Phosphatase 72 (34-104) U/L Albumin 4.4 (3.4-5.0) gm/dl Urine 07/07/22 Range/Units 20:20 Urine Color Yellow Urine Appearance Clear (Clear) Urine pH 6.0 (4.5-7.5) Ur Specific [place] 1.004 (1.000-1.030) Urine Protein Negative (Negative) Urine Glucose (UA) Negative (Negative) Diagnostic Findings Chest X-Ray 07/07/22 20:08 SINGLE VIEW CHEST CLINICAL HISTORY: Hypertension. Atypical chest pain. FINDINGS: An AP, portable, upright chest radiograph is obtained. No prior s tudies are available for comparison at the time of dictation. The cardiomediastinal silhouette is unremarkable. The lungs and pleural spaces are clear. No pneumothorax is seen. The bony thorax is grossly intact. IMPRESSION: No active disease in the chest. ACT 112: Negative or not required by law. Electronically signed by: Reno Ayon M.D. 07/08/2022 9:03 AM Head CTA 07/07/22 21:05 HEAD CTA HISTORY: Left arm numbness. TECHNIQUE: Multiaxial CT images of the head were performed both before and after the intravenous administration of contrast to evaluate the major cerebral vessels. Maximum intensity projection images were also obtained. A dose lowering technique was utilized adhering to the principles of ALARA. COMPARISON: None. FINDINGS: Mild motion artifact. The paranasal sinuses and mastoid air cells are clear. The calvarium and skull base are intact. The major dural venous sinuses are patent. Slightly hypoplastic distal right vertebral artery. There is no mass, hematoma, midline shift, or acute infarct. Visualized intracranial internal carotid arteries, distal vertebral arteries, and basilar artery are widely patent. There is no significant stenosis, occlusion, or aneurysm seen within the bilateral ACAs, MCAs, or deep submergence vehicle crewmember. IMPRESSION: 1. No acute intracranial abnormality. 2. No significant stenosis, occlusion, or aneurysm within the [place]. ACT 112: Negative or not required by law. Electronically signed by: Lj Hall M.D. 07/08/2022 7:49 AM Neck CTA 07/07/22 21:05 CT ANGIOGRAM OF THE NECK CLINICAL HISTORY: Left upper extremity numbness COMPARISON STUDY: No priors. TECHNIQUE: Following the IV administration of 110 of Optiray 300, CT angiogram of the neck was performed from the aortic arch to the skull base. Images are reviewed in the axial, sagittal, and coronal planes. 3-D MIPS images are created and assessed. IV contrast was administered without complication. All measurements were calculated based on NASCET criteria. A dose lowering technique was utilized adhering to the principles of ALARA. FINDINGS: Thoracic aorta: Visualized portions of the thoracic aorta are normal in caliber. The aortic arch demonstrates standard 3-vessel anatomy. Right carotid arterial system: The right common carotid artery is widely patent, as are the right internal and external carotid arteries. Left carotid arterial system: The left common carotid artery is widely patent, as are the left internal and external carotid arteries. Vertebral arteries: The vertebral arteries are widely patent bilaterally noting left-sided dominance. No dissection is seen. Subclavian arteries: Widely patent bilaterally. Intracranial vasculature: The visualized intracranial vessels at the skull base are patent. Jugular veins: Widely patent bilaterally. Brain parenchyma: The visualized brain parenchyma the skull base is within normal limits. Lung apices: Partially visualized upper lobe lung parenchyma appears clear. Soft tissues: The visualized pharyngeal soft tissues are normal in appearance noting angiographic phase technique. The oropharyngeal airway appears widely patent. The salivary and thyroid glands are normal in appearance. There are shotty cervical lymph nodes. Skeletal structures: The visualized calvarium at the skull base appears intact. The imaged cervical spine is within normal limits. Sinuses and mastoids: The visualized paranasal sinuses are clear. The mastoid air cells are well pneumatized. IMPRESSION: Unremarkable CT angiogram of the neck. ACT 112: Negative or not required by law. Electronically signed by: Reno Ayon M.D. 07/08/2022 9:03 AM Medications Administered Current Inpatient Medications Acetaminophen (Acetaminophen 325 Mg Tab) 650 mg PO Q4H PRN PRN Reason: Pain or Fever Stop: 08/07/22 00:55 Carvedilol (Carvedilol 3.125 Mg Tab) 3.125 mg PO BID LYDIA Stop: 08/07/22 20:59 Duloxetine HCl (Duloxetine Hcl 60 Mg Cap) 60 mg PO Q2D LYDIA Stop: 08/08/22 08:59 Duloxetine HCl (Duloxetine Hcl 20 Mg Cap) 80 mg PO Q2D LYDIA Stop: 08/07/22 08:59 Last Admin: 07/08/22 08:30 Dose: 80 mg Lamotrigine (Lamotrigine 100 Mg Tab) 150 mg PO QAM LYDIA Stop: 08/07/22 08:59 Last Admin: 07/08/22 08:30 Dose: 150 mg Losartan Potassium (Losartan Potassium 50 Mg Tab) 50 mg PO QAM LYDIA Stop: 08/07/22 08:59 Last Admin: 07/08/22 09:20 Dose: 50 mg Multivitamins (Multivitamin Tab) 1 tab PO QAM LYDIA Stop: 08/07/22 08:59 Last Admin: 07/08/22 08:31 Dose: 1 tab Nitroglycerin (Nitroglycerin Sl 0.4 Mg/Tab Tab) 0.4 mg SL UD PRN PRN Reason: Chest Pain Stop: 08/07/22 00:55 Pantoprazole Sodium (Pantoprazole 40 Mg Tab) 40 mg PO QAM LYDIA Stop: 08/07/22 08:59 Last Admin: 07/08/22 08:31 Dose: 40 mg Rizatriptan Benzoate (Rizatriptan Benzoate Metal Cut Off Saw Operator 10 Mg Tab) 10 mg PO UD PRN PRN Reason: Migraine Headache Stop: 08/07/22 01:03 Vitamin D (Cholecalciferol 1,000 Units 25 Mcg Tab) 2,000 units PO DAILY LYDIA Stop: 08/07/22 08:59 Last Admin: 07/08/22 08:30 Dose: 2,000 units
--- NOTE | 2022-07-08 12:57 | Discharge Summary ---
Discharge Summary Date of Service July 08, 2022 Notes For Next Care Provider Medication Changes From Visit Coreg 2.125mg PO BID Admission HPI Per Admitting Provider HISTORY OF PRESENT ILLNESS: This is a 51-year-old female with past medical history significant for hyperlipidemia, venous insufficiency of legs, GERD, history of headaches, history of thalassemia, history of bipolar affective disorder, generalized anxiety disorder, history of dysplastic nevus, presents with chest pain and numbness and tingliness in the left upper extremity. The patient is having some mild chest discomfort going on for last 2 to 3 days. She has lot of stress at home and at work. Daughter is getting next month and today morning, she had headache and she took Maxalt, but later in the evening, she continued to have tingling and numbness in the shoulder and arm. Her daughter checked her blood pressure,systolic blood pressure in 190s. No history of hypertension. In the ER when the patient came in, blood pressure was 200/104, got 2 doses of labetalol, currently, 157/91. Feeling better. She is still having slight mild chest discomfort. Currently, no headache, no neck chela n, no back pain, no abdominal pain, no leg pains. No shortness of breath, no cough, no fevers. She has vision issues from her cataracts. No earache, no runny nose, no sore throat. Appetite is okay. No nausea. Normal bowel and bladder movements. No swelling in the legs. Otherwise,prior to this episode no chest pain, shortness of breath on climbing steps or ambulating. Admission Exam Per Admitting Provider PHYSICAL EXAMINATION: GENERAL: The patient is of moderate build, not in acute distress. VITAL SIGNS: Temperature 36.4, pulse 100, respiratory rate 16, blood pressure 157/91 currently, oxygen 96% on room air. HEENT: Pupils equal, round and reactive to light. Oral mucosa moist. NECK: No JVD: No neck masses seen. CARDIOVASCULAR: S1 and S2 heard. Regular rate and rhythm. No murmur, no gallop. RESPIRATORY SYSTEM: Normal AP diameter. No accessory muscle use. No wheezing, no crackles. ABDOMEN: Soft, bowel sounds present, nontender, no distention. CENTRAL NERVOUS SYSTEM: The patient is alert and oriented. No facial droop. Speech is clear. Insight is good. Power 5/5 in all extremities. Sensation is intact. EXTREMITIES: No edema, no erythema. Principal Dx & Hospital Course #1 = Principal Diagnosis (1) Hypertensive urgency: Presented wtih 200/104. Typically has BP 120-130s systolic per office notes review. Not on antihypertensive therapy. No evidence of hyperlipidemia. A1C recommended if she stays or as outpatient. She has an upcoming cataract removal next week. Lisinopril 5mg given overnight along with one dose of labetalol 10mg IV. Losartan 50mg daily started today and cardiology recommends Coreg 3.125mg BID because of recent palpitations. Serial troponin enzymes were negative overnight. Exercise stress echo performed on day of discharge and there was no evidence of inducible ischemia at high workload. Blood pressure response to exercise was within normal limits. She was discharged in stable condition on low dose carvedilol therapy with close primary care follow-up recommended. Pota ssium and magnesium was 3.2 and 1.8, respectively and was repleted during her stay. (2) Palpitation: (3) Hypokalemia: Discharge Exam CONSTITUTIONAL: WNWD, vitals as above, generally well-appearing, NAD EYES: normal conjunctivae, no scleral icterus, ENT: external ear and nose normal, MMM NECK: trachea midline, RESPIRATORY: clear to auscultation bilaterally, no crackles, rales or wheezes, normal respiratory effort CARDIOVASCULAR: regular rate and rhythm, S1 and 2 heard without murmurs, gallops or rubs, no JVD, no peripheral edema, no abdominal bruits, 2+ radial pulse that is regular bilaterally. CHEST: inspection of chest was normal GASTROINTESTINAL: soft, nontender, ND, no guarding MUSCULOSKELETAL: strength 5/5 throughout, head is normocephalic and atraumatic SKIN: warm and dry NEUROLOGIC: CN 2-12 grossly intact, no sensory deficit, normal cognition, normal speech, no tremor PSYCHIATRIC: alert cooperative and oriented to person, place and time. Euthymic mood, makes good eye contact, language grossly intact, recent and remote memory grossly intact. Updated Medication List Medication Instructions Recorded Confirmed Type cholecalciferol (vitamin D3) 50 50 mcg PO DAILY 07/07/22 07/07/22 History mcg (2,000 unit) tablet (Vitamin D3) duloxetine 30 mg capsule,delayed 60 mg PO Q OTHER DAY 07/07/22 07/07/22 History release duloxetine 30 mg capsule,delayed 80 mg PO Q OTHER DAY 07/07/22 07/07/22 History release lamotrigine 150 mg tablet 150 mg PO QAM 07/07/22 07/07/22 History multivitamin 1 tab PO DAILY 07/07/22 07/07/22 History pantoprazole 40 mg tablet,delayed 40 mg PO QAM 07/07/22 07/07/22 History release rizatriptan 10 mg disintegrating 10 mg PO DIRECTED 07/07/22 07/07/22 History tablet carvedilol 3.125 mg tablet 3.125 mg PO BID #60 tabs 07/08/22 Rx Hospital Stay Data Consultations 07/07/22 22:40 ED Decision to Admit Stat 07/08/22 08:00 Consult Cardiology Routine Diagnostic Imagining Performed 07/07/22 21:05 CT angio head wo/w Urgent CT angio neck with con Urgent Pending Results Patient Have Any Pending Studies at Discharge: No Discharge Instructions Given to Patient (Per Discharging Provider) Please take carvedilol 3.125mg twice daily and monitor your blood pressure three times weekly. Please follow-up with your primary care provider within he next couple of weeks to ensure you are tolerating this well and no dose adjustment is needed. Your cholesterol check revealed no need for medication at this time. Given elevated blood pressure, discuss with your PCP about getting a screening test for metabolic syndrome, called hemoglobin A1C. Your goal blood pressure is <130/80. Your stress test was negative. It was a pleasure taking care of you! Please call if you have any questions or problems. You can reach a [facility] hospitalist on duty at [facility] 24 hours a day by calling [phone]. Take care of yourself. Traci Davies, [facility] Park[facility] Total Time Total Time Spent Total Time Spent (In Minutes): 60
[2022-07-08] MEDS ORDERED: carvediloL 3.125 MG TAB PO ONE (13:00)
[2022-07-08] MEDS ORDERED: carvediloL 3.125 MG TAB PO SCH (21:00)
[2022-07-09] MEDS ORDERED: DULoxetine HCL 60 MG CAP PO SCH (09:00)
== END 2022-07-08 15:55 | disposition home or self-care (01) | DRG 305 ==
LOC: ED 19:09 → 2E 22:40
DX: E87.6 Hypokalemia; I16.0 Hypertensive urgency; E78.5 Hyperlipidemia, unspecified; I49.3 Ventricular premature depolarization; R20.2 Paresthesia of skin; F31.9 Bipolar disorder, unspecified; D56.9 Thalassemia, unspecified; K21.9 Gastro-esophageal reflux disease without esophagitis